=== PATIENT | female | born 1980 ===

== ENCOUNTER 2017-04-22 18:33 | Emergency (ER) | payer MEDICAID, OTHER ==
[2017-04-22 18:33] VITALS: BMI 34.5
[2017-04-22 18:39] VITALS: RESP 18; TEMP 98.3
--- NOTE | 2017-04-22 19:40 | C.PDOC ---
History Of Present Illness 36 year old female with a Hx of hemorrhoids who presents to the ER with a complaint of pain and swelling to the rectal area after defecation. Denies rectal bleeding or abdominal pain. Time Seen by Provider: 04/22/17 19:20 Chief Complaint (Nursing): Abnormal Skin Integrity History Per: Patient History/Exam Limitations: no limitations Onset/Duration Of Symptoms: Days Current Symptoms Are (Timing): Still Present Recent travel outside of the [place]: No Past Medical History Reviewed: Historical Data, Nursing Documentation, Vital Signs Vital Signs: Last Vital Signs Temp 98.3 F 04/22/17 19:49 Pulse 95 H 04/22/17 19:49 Resp 18 04/22/17 18:38 BP 160/105 H 04/22/17 19:49 Pulse Ox 97 04/22/17 19:49 - Medical History PMH: No Chronic Diseases Surgical History: No Surg Hx Family History: States: Unknown Family Hx - Social History Hx Tobacco Use: No Hx Alcohol Use: No Hx Substance Use: Yes - Immunization History Hx Tetanus Toxoid Vaccination: No Hx Influenza Vaccination: No Hx Pneumococcal Vaccination: No Review Of Systems Gastrointestinal: Positive for: Rectal Pain (w/ swelling). Negative for: Abdominal Pain, Diarrhea, Other (Rectal bleeding) Physical Exam - Physical Exam Appears: Non-toxic, No Acute Distress Skin: Normal Color, Warm, Dry Head: Atraumatic, Normacephalic Oral Mucosa: Moist Gastrointestinal/Abdominal: Soft, No Tenderness Rectal: Hemorrhoids (External to 7-8 o'clock), Other (Skin tag at 6 o'clock. No bleeding, fistula, perineal abscess, or bloody stools.) Neurological/Psych: Oriented x3, Normal Speech, Normal Cognition ED Course And Treatment O2 Sat by Pulse Oximetry: 98 (Room air) Pulse Ox Interpretation: Normal Disposition Counseled Patient/Family Regarding: Diagnosis, Need For Followup, Rx Given - Disposition Disposition: HOME/ ROUTINE Disposition Time: 19:37 Condition: STABLE Additional Instructions: Please follow up with PMD Do SITZ BATHS High fiber diet Take meds as directed Return to ER if worse Prescriptions: Docusate Sodium [Colace] 100 mg PO TID #30 capsule Hydrocortisone [Anusol-HC] 25 mg RC BID #20 sup Instructions: Hemorrhoids (ED) Forms: [employer] ([place]), Work Excuse - Clinical Impression Clinical Impression: External hemorrhoid - Scribe Statement The provider has reviewed the documentation as recorded by the Scribe Jeremias Guerra All medical record entries made by the Musaibrob were at my direction and personally dictated by me. I have reviewed the chart and agree that the record accurately reflects my personal performance of the history, physical exam, medical decision making, and the department course for this patient. I have also personally directed, reviewed, and agree with the discharge instructions and disposition.
[2017-04-22 19:51] VITALS: BP 160/105; PULSE 95
[2017-04-22 23:06] VITALS: O2SAT 98
== END 2017-04-22 19:53 | disposition home or self-care (01) ==
LOC: C.ER 18:33
DX: K64.4 Residual hemorrhoidal skin tags (principal)